=== PATIENT | female | born 1965 | race Caucasian/White ===

== ENCOUNTER 2017-04-28 22:57 | Inpatient (IN) ==
[2017-04-28] MEDS ORDERED: ATIVAN ONE (22:58)
[2017-04-28] MEDS ORDERED: ATIVAN IV ONE (23:00)
[2017-04-28] MEDS ORDERED: NS 1,000 ML ONE (23:07)
[2017-04-28] MEDS ORDERED: NS 1,000 ML IV ONE (23:07)
[2017-04-28 23:21] LABS: BE -2.9 mmoll (-3.0-3.0); BLOOD TYPE ARTERIAL; DRAW SITE R RADIAL; METHB 1.5 % (0.0-1.5); PCO2(98.6) 44 mmHg (35-45); PO2(98.6) 67 mmHg (60-100); SAMPLE BLOOD; SAO2 96.1 % (95.0-100.0); THB 14.5 g/dL (11.5-17.4); pH(98.6) 7.33 (7.35-7.45)
--- NOTE | 2017-04-28 23:41 | PROVIDER DOCUMENTATION ---
This chart was entered by Ellen Staley Scribe, acting as scribe for Devan Rocha MD. HPI-Psychological Disorder - General Chief Complaint: Altered Mental Status Time Seen by Provider: 04/28/17 22:59 Unable to obtain history due to:: altered Allergies/Adverse Reactions: Patient Allergies Allergy/AdvReac Type Severity Reaction Status Date / Time morphine Allergy Unknown HIVES Verified 04/28/17 23:04 Home Medications: Home Medication List Medication Instructions Recorded Confirmed Last Taken Type Ergocalciferol (Vitamin D2) 50,000 unit PO Q7D #14 capsule 11/04/16 Unknown Rx [Vitamin D] Gabapentin [Neurontin] 300 mg PO BID 30 Days 11/04/16 Unknown Rx Haloperidol [Haldol] 10 mg PO QHS 30 Days 11/04/16 Unknown Rx Levetiracetam [Keppra] 500 mg PO BID 30 Days 11/04/16 Unknown Rx Melatonin 5 mg PO QHS 30 Days 11/04/16 Unknown Rx Phenazopyridine [Pyridium] 100 mg PO TID 7 Days 11/04/16 Unknown Rx Trazodone [Desyrel] 50 mg PO QHS 30 Days 11/04/16 Unknown Rx - History of Present Illness-Psych Nature of Presenting Problem: 51 Y/O F presents to ED with Psych. Pt is delirious on arrival to ED having active hallucinations, screaming and distraught. Pt had to be wrestled into a wheelchair by ED nurses in [facility]. Onset/Duration: reports: this evening Timing: reports: still present Severity: reports: severe Situational problems related to:: reports: N/A Patient arrived by:: private car Review of Systems - Adult - REVIEW OF SYSTEMS - ADULT ROS:: unobtainable per condition (due to condition) Constitutional: denies: chills, fever Eyes: reports: no symptoms reported Ears, Nose, Mouth & Throat: reports: no symptoms reported Cardiovascular: reports: no symptoms reported Respiratory: reports: no symptoms reported Gastrointestinal: reports: no symptoms reported Genitourinary: reports: no symptoms reported Musculoskeletal: reports: no symptoms reported Integumentary: reports: no symptoms reported Neurological: reports: no symptoms reported Psychiatric: reports: no symptoms reported Endocrine: reports: no symptoms reported Hematologic/Lymphatic: reports: no symptoms reported Allergic/Immunologic: reports: no symptoms reported All Other Systems: Reviewed and Negative Past History - Adult - PAST MEDICAL HISTORY-ADULT Review of Records: reports: Old Records Reviewed, Nursing Assessment Review, Medications Reviewed, Social history reviewed & non-contributory. Major Childhood Illnesses: reports: history unknown Cardiovascular: reports: HTN Respiratory: reports: denies history Gastrointestinal: reports: denies history Obstetrical/Gynecological: reports: uterine/ovarian cancer Musculoskeletal: reports: chronic pain, intervertebral disc disease Neurological: reports: Seizures/Epilepsy Psychiatric: reports: denies history Endocrine/Immune: reports: denies history Other Conditions: reports: denies history - PRIOR SURGERIES/PROCEDURES Surgical/Procedure History: reports: hysterectomy, other, cholecystectomy, back/ neck - PRIOR HOSPITALIZATIONS Prior Hospitalizations: reports: none - IMMUNIZATION STATUS Childhood Immunizations: UTD Flu Vaccine: UTD - FAMILY HISTORY Family History: reviewed, not pertinent Physical Exam-Psych Focus - Physical Exam-Psych Appearance: alert, anxious, disheveled, lethargic, moderate distress Neurological: anxious Thoughts/Hallucinations: auditory hallucinations, visual hallucinations HENMT: moist mucous membranes, normal ENT inspection Neck: full range of motion, supple Respiratory: normal breath sounds, no pleuratic chest pain Cardiovascular: tachycardia Abdominal Exam: non tender, soft Lymphatic: no adenopathy Back Exam: no CVA tenderness, no vertebral tenderness Extremity: non-tender Integumentary: normal color, normal turgor Progress - PLAN OF CARE/RESULTS Progress/Plan/Lab Results: Vital Signs - 8 hr 04/28/17 22:57 04/28/17 23:16 04/29/17 00:22 Temperature 97.8 F 97.0 F L 97.0 F L Pulse Rate 136 H 100 H 76 Respiratory Rate 28 H 18 16 Blood Pressure 163/121 111/70 87/53 O2 Sat by Pulse Oximetry 98 95 96 Laboratory Results - last 24 hr 04/28/17 04/28/17 04/28/17 23:00 23:00 23:00 WBC RBC Hgb Hct MCV MCH MCHC RDW Std Deviation Plt Count MPV Immature Gran % (Auto) Neut % (Auto) Lymph % (Auto) [place] % (Auto) Eos % (Auto) Baso % (Auto) Immature Gran # (Auto) Neut # (Auto) Lymph # (Auto) [place] # (Auto) Eos # (Auto) Baso # (Auto) Segmented Neutrophils Band Neutrophils Lymphocytes Monocytes Eosinophils Basophils Metamyelocytes Myelocytes Promyelocytes Nucleated RBCs Atypical Lymphocytes Blast Cells Hypochromia Vacuolization Toxic Granulation Dohle Bodies Large Platelets Polychromasia Poikilocytosis Basophilic Stippling Anisocytosis Microcytosis Macrocytosis Spherocytes Sickle Cells Target Cells Ovalocytes Stomatocytes [place] Bodies Gilberto Cells Unidentified Cells Schistocytes PT INR APTT (Factor Assay) Specimen Type Sample Site pH pCO2 pO2 HCO3 Base Excess Oxyhemoglobin ABG O2 Sat (Calculated) ABG O2 Saturation ABG Carboxyhemoglobin ABG Methemoglobin Total Hemoglobin Lactate Liter Flow Sodium 136 Potassium 3.1 L Chloride 94 L Carbon Dioxide 23 L Anion Gap 19 BUN 13 Creatinine 1.1 H Estimated GFR/1.73 m2 53 BUN/Creatinine Ratio 12 Glucose 314 H Calculated Osmolality 284 Calcium 9.4 Total Bilirubin 0.80 AST 22 ALT 15 Alkaline Phosphatase 122 H Creatine Kinase 228 H Creatine Kinase Index 1.6 CK-MB (CK-2) 3.76 Troponin T < 0.010 Total Protein 7.9 Albumin 4.7 Globulin 3.0 Albumin/Globulin Ratio 1.0 Plasma Lactate Urine Source Urine Color Urine Clarity Urine pH Ur Specific [place] Urine Protein Urine Ketones Urine Blood Urine Nitrite Urine Bilirubin Urine Urobilinogen Urine Microscopic RBC Urine WBC Urine Microscopic WBC Ur Epithelial Cells Small Round Cells Urine Bacteria Urine Glucose Urine Opiates Screen Ur Oxycodone Screen Urine Methadone Screen Ur Barbituates Screen Ur Tricyclics Screen Ur Phencyclidine Scrn Ur Amphetamines Screen U Methamphetamines Scrn Urine MDMA Screen U Benzodiazepines Scrn Urine Cocaine Screen U Cannabinoids Screen Plasma/Serum Ethyl Alc 04/28/17 04/28/17 04/28/17 23:00 23:00 23:03 WBC 20.66 H RBC 4.62 Hgb 14.9 Hct 44.4 MCV 96.1 MCH 32.3 H MCHC 33.6 RDW Std Deviation 13.3 Plt Count 275 MPV 10.7 H Immature Gran % (Auto) 0.2 Neut % (Auto) 75.9 H Lymph % (Auto) 17.2 L [place] % (Auto) 6.3 Eos % (Auto) 0.3 Baso % (Auto) 0.1 Immature Gran # (Auto) 0.05 H Neut # (Auto) 15.66 H Lymph # (Auto) 3.55 H [place] # (Auto) 1.31 H Eos # (Auto) 0.06 Baso # (Auto) 0.03 Segmented Neutrophils Cancelled Band Neutrophils Cancelled Lymphocytes Cancelled Monocytes Cancelled Eosinophils Cancelled Basophils Cancelled Metamyelocytes Cancelled Myelocytes Cancelled Promyelocytes Cancelled Nucleated RBCs Cancelled Atypical Lymphocytes Cancelled Blast Cells Cancelled Hypochromia Cancelled Vacuolization Cancelled Toxic Granulation Cancelled Dohle Bodies Cancelled Large Platelets Cancelled Polychromasia Cancelled Poikilocytosis Cancelled Basophilic Stippling Cancelled Anisocytosis Cancelled Microcytosis Cancelled Macrocytosis Cancelled Spherocytes Cancelled Sickle Cells Cancelled Target Cells Cancelled Ovalocytes Cancelled Stomatocytes Cancelled [place] Bodies Cancelled [place] Cells Cancelled Unidentified Cells Cancelled Schistocytes Cancelled PT 13.7 INR 0.97 APTT (Factor Assay) 26.7 Specimen Type ARTERIAL Sample Site R RADIAL pH 7.33 L pCO2 44 pO2 67 HCO3 22.4 Base Excess -2.9 Oxyhemoglobin 88.5 L* ABG O2 Sat (Calculated) 18.0 ABG O2 Saturation 96.1 ABG Carboxyhemoglobin 6.40 H* ABG Methemoglobin 1.5 Total Hemoglobin 14.5 Lactate 2.40 H Liter Flow 2.0 Sodium Potassium Chloride Carbon Dioxide Anion Gap BUN Creatinine Estimated GFR/1.73 m2 BUN/Creatinine Ratio Glucose Calculated Osmolality Calcium Total Bilirubin AST ALT Alkaline Phosphatase Creatine Kinase Creatine Kinase Index CK-MB (CK-2) Troponin T Total Protein Albumin Globulin Albumin/Globulin Ratio Plasma Lactate Urine Source Urine Color Urine Clarity Urine pH Ur Specific [place] Urine Protein Urine Ketones Urine Blood Urine Nitrite Urine Bilirubin Urine Urobilinogen Urine Microscopic RBC Urine WBC Urine Microscopic WBC Ur Epithelial Cells Small Round Cells Urine Bacteria Urine Glucose Urine Opiates Screen Ur Oxycodone Screen Urine Methadone Screen Ur Barbituates Screen Ur Tricyclics Screen Ur Phencyclidine Scrn Ur Amphetamines Screen U Methamphetamines Scrn Urine MDMA Screen U Benzodiazepines Scrn Urine Cocaine Screen U Cannabinoids Screen Plasma/Serum Ethyl Alc 04/28/17 04/28/17 04/28/17 23:10 23:10 23:30 WBC RBC Hgb Hct MCV MCH MCHC RDW Std Deviation Plt Count MPV Immature Gran % (Auto) Neut % (Auto) Lymph % (Auto) [place] % (Auto) Eos % (Auto) Baso % (Auto) Immature Gran # (Auto) Neut # (Auto) Lymph # (Auto) [place] # (Auto) Eos # (Auto) Baso # (Auto) Segmented Neutrophils Band Neutrophils Lymphocytes Monocytes Eosinophils Basophils Metamyelocytes Myelocytes Promyelocytes Nucleated RBCs Atypical Lymphocytes Blast Cells Hypochromia Vacuolization Toxic Granulation Dohle Bodies Large Platelets Polychromasia Poikilocytosis Basophilic Stippling Anisocytosis Microcytosis Macrocytosis Spherocytes Sickle Cells Target Cells Ovalocytes Stomatocytes [place] Bodies Gilberto Cells Unidentified Cells Schistocytes PT INR APTT (Factor Assay) Specimen Type Sample Site pH pCO2 pO2 HCO3 Base Excess Oxyhemoglobin ABG O2 Sat (Calculated) ABG O2 Saturation ABG Carboxyhemoglobin ABG Methemoglobin Total Hemoglobin Lactate Liter Flow Sodium Potassium Chloride Carbon Dioxide Anion Gap BUN Creatinine Estimated GFR/1.73 m2 BUN/Creatinine Ratio Glucose Calculated Osmolality Calcium Total Bilirubin AST ALT Alkaline Phosphatase Creatine Kinase Creatine Kinase Index CK-MB (CK-2) Troponin T Total Protein Albumin Globulin Albumin/Globulin Ratio Plasma Lactate 2.2 Urine Source CATH Urine Color YELLOW Urine Clarity VERY CLOUDY A Urine pH 5.0 Ur Specific [place] 1.025 Urine Protein 2+(100 mg/dL) A Urine Ketones TRACE Urine Blood 2+ A Urine Nitrite NEGATIVE Urine Bilirubin NEGATIVE Urine Urobilinogen NORMAL Urine Microscopic RBC 10-20 A Urine WBC 2+ A Urine Microscopic WBC 10-20 A Ur Epithelial Cells <10 Small Round Cells [employer] Urine Bacteria 3+ Urine Glucose NEGATIVE Urine Opiates Screen PRESUMPTIVE POSITIVE A Ur Oxycodone Screen NONE DETECTED Urine Methadone Screen NONE DETECTED Ur Barbituates Screen NONE DETECTED Ur Tricyclics Screen NONE DETECTED Ur Phencyclidine Scrn NONE DETECTED Ur Amphetamines Screen NONE DETECTED U Methamphetamines Scrn NONE DETECTED Urine MDMA Screen NONE DETECTED U Benzodiazepines Scrn NONE DETECTED Urine Cocaine Screen PRESUMPTIVE POSITIVE A U Cannabinoids Screen PRESUMPTIVE POSITIVE A Plasma/Serum Ethyl Alc Orders Category Date Time Status Cardiac Monitoring DIRECTED Care 04/28/17 23:00 Active Finger Stick Blood Sugar (ED) DIRECTED Care 04/28/17 23:00 Active Key Cath Insertion ORDERED Care 04/29/17 00:00 Active Key Cath Insertion ORDERED Care 04/29/17 00:34 Active IV Insertion ORDERED Care 04/29/17 00:34 Active Intake and Output-Strict ORDERED Care 04/29/17 00:00 Active Intake and Output-Strict ORDERED Care 04/29/17 00:34 Active Misc. NRSG Communication Order DIRECTED Care 04/28/17 23:00 Active Notify MD/PA/DYNO TECHNICIAN for exam NOW Care 04/29/17 00:00 Active Notify MD/PA/DYNO TECHNICIAN for exam NOW Care 04/29/17 00:34 Active Oxygen Therapy- ED Nursing DIRECTED Care 04/28/17 23:00 Active Repeat Vital Signs .Blood Pressure Care 04/29/17 00:00 Active Repeat Vital Signs .Blood Pressure Care 04/29/17 00:34 Active Repeat Vital Signs .Heart Rate Care 04/29/17 00:00 Active Repeat Vital Signs .Heart Rate Care 04/29/17 00:34 Active Repeat Vital Signs .Oxygen Saturation Care 04/29/17 00:00 Active Repeat Vital Signs .Oxygen Saturation Care 04/29/17 00:34 Active Repeat Vital Signs .Respiratory Rate Care 04/29/17 00:00 Active Repeat Vital Signs .Respiratory Rate Care 04/29/17 00:34 Active Repeat Vital Signs .Temp Care 04/29/17 00:00 Active Repeat Vital Signs .Temp Care 04/29/17 00:34 Active Saline Loc NOW Care 04/28/17 23:00 Active CHEST-PORTABLE [RAD] Stat Exams 04/28/17 23:00 Taken ABG [RESP] Routine Lab 04/28/17 23:03 Results ALCOHOL BLOOD Stat Lab 04/28/17 23:00 Completed CBC WITH ELECTRONIC DIFF [HEME] Stat Lab 04/28/17 23:00 Completed CK PROFILE [SP CHEM] Stat Lab 04/28/17 23:00 Completed COMPREHENSIVE METABOLIC PANEL [CHEM] Stat Lab 04/28/17 23:00 Completed LACTATE, PLASMA [CHEM] Stat Lab 04/28/17 23:30 Com[address]IME WITH INR PL [COAG] Stat Lab 04/28/17 23:[address] [COAG] Stat Lab 04/28/17 23:00 Completed TROPONIN T Stat Lab 04/28/17 23:[address] W/POSS RFLX CULT [URINALYSIS] Stat Lab 04/28/17 23:10 Completed URINE CULTURE [RM] Routine Lab 04/29/17 00:09 [address] DRUG SCREEN [address] Stat Lab 04/28/17 23:10 Completed 0.9% Sodium Chloride Inj [Ns] 1,000 ml Med 04/28/17 23:07 Discontinued .ROUTE As Directed 0.9% Sodium Chloride Inj [Ns] 1,000 ml Med 04/28/17 23:07 Discontinued IV 999 mls/hr 0.9% Sodium Chloride Inj [Ns] 1,000 ml Med 04/29/17 00:00 Discontinued IV As Directed 0.9% Sodium Chloride Inj [Ns] 1,000 ml Med 04/29/17 00:34 Discontinued IV As Directed 0.9% Sodium Chloride Inj [Ns] 100 ml Med 04/29/17 00:00 Discontinued Vasopressin [Pitressin] 40 unit IV As Directed 0.9% Sodium Chloride Inj [Ns] 3,000 ml Med 04/29/17 00:41 Active IV 150 mls/hr 0.9% Sodium Chloride Inj [Ns] 500 ml Med 04/29/17 00:00 Discontinued IV 999 mls/hr 0.9% Sodium Chloride Inj [Ns] 500 ml Med 04/29/17 00:34 Discontinued IV 999 mls/hr Dextrose 5%-0.45% NaCl Inj [D5 1/2 Ns] 1,000 ml Med 04/29/17 00:43 Discontinued .ROUTE As Directed Dextrose 5%-0.45% NaCl Inj [D5 1/2 Ns] 250 ml Med 04/29/17 00:45 Active Norepinephrine [Levophed] 8 mg IV 2 mcg/min Levofloxacin 750 mg/D5w [Levaquin 750 mg/D5w] Med 04/29/17 01:03 Discontinued 750 mg in 150 ml .ROUTE As Directed Lorazepam [Ativan] Med 04/28/17 22:58 Discontinued 2 mg .ROUTE .STK-MED ONE Lorazepam [Ativan] Med 04/28/17 23:00 Discontinued 2 mg IV NOW ONE Norepinephrine [Levophed] Med 04/29/17 00:41 Discontinued 4 mg .ROUTE .STK-MED ONE Norepinephrine [Levophed] Med 04/29/17 00:56 Discontinued 4 mg .ROUTE .STK-MED ONE Piperacil/Tazobact 3.375 gm/Ns [Zosyn 3.375 gm/Ns] Med 04/29/17 00:00 Discontinued 3.375 gm in 50 ml IV NOW Vancomycin 1 gm/Ns Med 04/29/17 00:37 Discontinued 1 gm in 250 ml .ROUTE As Directed Vancomycin 1 gm/Ns Med 04/29/17 00:35 Active 1 gm in 250 ml IV NOW Pulse Oximetry Stat Oth 04/28/17 23:00 Active EKG [EKG] Stat Ther 04/28/17 23:[address] Yancey ,hospitalist at [facility] who is covering for Dr. Quiros. Dr. Yancey reports that there is no ICU beds at [facility]. patient will need to be admitted to ICU at [place]. Result Diagrams: 04/28/17 23:00 04/28/17 23:00 - EKG 1 Time of EKG reading by physician:: 23:13 EKG Read and Signed by:: Devan Rocha EKG Interpretation (*Must complete 3 of following elements*): Normal Rate: 97 Rhythm: NSR ST Wave: non-specific ST changes Comments: Abnormal ECG, Bilateral enlargement - XRAY 1 XRAY Study: Chest Impression: Normal XRAY Interpretation: NAD - CONSULTS/PCP/HOSPITALIST Notification #1 *Consult/PCP/Hospitalist*: Time Discussed: 00:43 Reason/Comments: Plan of care Consult Disposition: other (speak to the hospitalist at [facility] and xfer to the hospital) #2 Consult: Time Discussed: 00:59 Reason/Comments: Admit Consult Disposition: Admit (denied admittance stating no ICU bed availabe at [facility]) #3 Consult: Dr. Richardson, hospitalist Time Discussed: 01:05 Consult Disposition: Admit Departure - Departure Date of Disposition Decision: 04/29/17 Time of Disposition Decision: 01:07 DIAGNOSIS: Septic shock, Sepsis secondary to UTI, Hypotension Disposition: ADMITTED INPATIENT 09 Certified Medical Emergency: Emergent Condition: Critical Referrals and Follow-Ups: None,PCP [Primary Care Provider] - - Critical Care Note This patient required my direct & personal management of CC.: Yes Total Time (mins): 128 Critical Care Statement: This patient required my direct personal management to treat or rule out processes, the absence of which, could potentiallly result in sudden, clinically significant life or limb threatening deterioration. Comments: Patient is in septic shock with urinary tract infection requiring intensive care management including agressive IV fluid resuscitation, IV antibiotics, and IV pressors. patient also has altered mentation. Attestation - Physician/ JOHANNA Attestation The physician spent face to face time with patient:: Yes Advanced Practice Provider documentation review:: Supervising physician onsite and consulted in the evaluation and care of this patient. The physician did have a face to face encounter with the patient. This chart was documented by the indicated scribe, (Ellen Staley Scribe) and accurately reflects the services I performed and decisions made by me, Devan Rocha MD, as attested by the provider's signature.
--- NOTE | 2017-04-28 23:47 | EKG Report ---
Test Performed on : 04/28/2017 11:13:29 PM Test Reason : AMS Blood Pressure : / mmHG Vent. Rate : 097 BPM Atrial Rate : 097 BPM P-R Int : 148 ms QRS Dur : 092 ms QT Int : 358 ms P-R-T Axes : 070 019 088 degrees QTc Int : 454 ms Normal sinus rhythm. Biatrial enlargement Nonspecific ST and T wave abnormality Abnormal ECG When compared with ECG of 09-OCT-2012 15:37, Vent. rate has increased BY [address] now depressed in Inferior leads ST now depressed in Lateral leads Nonspecific T wave abnormality now evident in Lateral leads Unconfirmed Result
[2017-04-28 23:48] LABS: ALBUMIN 4.7 g/dL (3.5-5.0); CALCIUM 9.4 mg/dL (8.8-10.2); POTASSIUM 3.1 mmol/L (3.5-5.1); TOTAL BILIRUBIN 0.8 mg/dL (0.20-1.00); TOTAL PROTEIN 7.9 g/dL (6.3-8.3)
[2017-04-28 23:50] LABS: BILIRUBIN URINE NEGATIVE (NEGATIVE); BLOOD URINE 2+ (NEGATIVE); CLARITY VERY CLOUDY (CLEAR); COLOR YELLOW; GLUCOSE URINE NEGATIVE (NEGATIVE); NITRITE URINE NEGATIVE (NEGATIVE); PROTEIN URINE 2+(100 mg/dL) mg/dL (NEGATIVE); SP GRAVITY URINE 1.025; UROBILINOGEN URINE NORMAL
[2017-04-28 23:55] LABS: UR AMPHETAMINES QUAL NONE DETECTED (NONE DETECT); UR BARBITUATES QUAL NONE DETECTED (NONE DETECT); UR BENZODIAZEPIN QUAL NONE DETECTED (NONE DETECT); UR COCAINE QUAL PRESUMPTIVE POSITIVE (NONE DETECT)
[2017-04-28 23:56] LABS: UR CANNABINOIDS QUAL PRESUMPTIVE POSITIVE (NONE DETECT); UR MDMA QUAL NONE DETECTED (NONE DETECT); UR METHADONE QUAL NONE DETECTED (NONE DETECT); UR METHAMPHETAMINE QUAL NONE DETECTED (NONE DETECT); UR OPIATES QUAL PRESUMPTIVE POSITIVE (NONE DETECT); UR OXYCODONE QUAL NONE DETECTED (NONE DETECT); UR PCP QUAL NONE DETECTED (NONE DETECT); UR TCA QUAL NONE DETECTED (NONE DETECT)
[2017-04-28 23:58] LABS: BASO% 0.1 % (0.0-0.8); EOS# 0.06 X1000 (0.0-0.7); EOS% 0.3 % (0.0-10.0); HEMATOCRIT 44.4 % (37.0-47.0); HEMOGLOBIN 14.9 g/dL (12.0-16.0); IMM GRAN# 0.05 X1000 (0.0-0.04); IMM GRAN% 0.2 % (0.0-0.5); LYMPH# 3.55 X1000 (1.2-3.4); LYMPH% 17.2 % (20.5-51.1); MCH 32.3 PG (27-31); MCHC 33.6 g/dL (33-37); MCV 96.1 FL (81-99); MONO# 1.31 X1000 (0.11-0.59); MONO% 6.3 % (1.7-9.3); MPV 10.7 FL (7.4-10.4); NEUT% 75.9 % (42.2-75.2); PLT 275 X1000 (130-400); RBC 4.62 XMIL (4.2-5.4)
[2017-04-29] LABS: MANUAL DIFF NEEDED? NO
[2017-04-29] MEDS ORDERED: ZOSYN 3.375 GM/NS 3.375 GM/50 ML IVPB IV ONE
[2017-04-29] MEDS ORDERED: PITRESSIN 40 UNIT in NS 100 ML IV SCH ×2
[2017-04-29 00:07] LABS: URINE CULTURE PL NEEDED? YES; URINE EPITHELIAL CELLS <10 /HPF (<10); URINE SOURCE CATH
[2017-04-29 00:09] LABS: LEUKOCYTES URINE 2+ (NEGATIVE)
[2017-04-29 00:24] LABS: CK INDEX 1.6 (0.0-2.5); CK-MB 3.76 ng/mL (0.0-5.0)
[2017-04-29] MEDS ORDERED: NS 500 ML IV ONE ×2 (00:34)
[2017-04-29] MEDS ORDERED: NS 1,000 ML IV ONE ×2 (00:34)
[2017-04-29] MEDS ORDERED: VANCOMYCIN 1 GM/NS 1 GM/250 ML IVPB IV ONE (00:35)
[2017-04-29] MEDS ORDERED: VANCOMYCIN 1 GM/NS 1 GM/250 ML IVPB ONE (00:37)
[2017-04-29] MEDS ORDERED: NS 3,000 ML IV ONE (00:41)
[2017-04-29] MEDS ORDERED: LEVOPHED ONE ×4 (00:41→01:06)
[2017-04-29] MEDS ORDERED: D5 1/2 NS 1,000 ML ONE (00:43)
[2017-04-29] MEDS ORDERED: LEVOPHED 8 MG in D5 1/2 NS 250 ML IV SCH (00:45)
[2017-04-29 00:58] LABS: INR 0.97 (0.86-1.15); PROTIME 13.7 Seconds (12.1-15.5)
[2017-04-29 00:59] LABS: PTT PL 26.7 Seconds (22.6-43.9)
[2017-04-29] MEDS ORDERED: LEVAQUIN 750 MG/D5W 750 MG/150 ML IVPB ONE (01:03)
[2017-04-29] MEDS ORDERED: LEVAQUIN 750 MG/D5W 750 MG/150 ML IVPB IV ONE (01:09)
[2017-04-29] MEDS ORDERED: VANCOMYCIN IV PER PHARMACY MISC SCH (01:15)
[2017-04-29] MEDS ORDERED: VANCOMYCIN 500 MG/NS 500 MG/100 ML IVPB IV ONE (03:00)
[2017-04-29] MEDS ORDERED: ZOSYN 3.375 GM/NS 3.375 GM/50 ML IVPB IV SCH (06:00)
[2017-04-29 06:48] LABS: MODALITY CANNULA
[2017-04-29 06:49] LABS: ALLEN TEST YES
--- NOTE | 2017-04-29 08:04 | Diag Imaging Result Doc PS360 ---
EXAM: CHEST-PORTABLE HISTORY: AMS TECHNIQUE: Single view of the chest was performed portably. COMPARISON: 01/27/2017 FINDINGS: The cardiomediastinal silhouette is within normal limits. The pulmonary vasculature is not congested. No infiltrate, effusion, or pneumothorax is appreciated. There are postsurgical changes lower cervical spine. IMPRESSION: No acute cardiopulmonary abnormality is identified. Electronically signed by Francisca Leal 04/29/2017 8:02 AM
[2017-04-29] MEDS: NICODERM PATCH TD SCH (08:07)
[2017-04-29] MEDS: AUGMENTIN PO SCH ×2 (11:23→20:04)
[2017-04-29] MEDS ORDERED: LEVOPHED 8 MG in D5 1/2 NS 250 ML IV PRN (14:36)
[2017-04-29] MEDS ORDERED: TUMS EXTRA STRENGTH PO ONE (19:19)
--- NOTE | 2017-04-29 20:49 | HISTORY AND PHYSICAL ---
CHIEF COMPLAINT: Altered mental status. HISTORY OF PRESENT ILLNESS: Patient is a 51-year-old female who presented to the emergency department after being found by family and friends. She was hallucinating, distraught, was screaming. She was brought to the emergency department and needed to be restrained for a short period of time in the ER. After which time she became more somnolent and has been asleep most of the rest of the night. ALLERGIES: Morphine. MEDICATIONS: Vitamin D, Neurontin 300, Haldol p.r.n., Keppra 500 b.i.d., melatonin 5 at bedtime, Pyridium 100 t.i.d. and Desyrel. REVIEW OF SYSTEMS: As noted from the old chart. The patient currently is quite somnolent and does not arouse more than for a question or 2. She does deny attempting to hurt herself. However she also states that God told her someone would come along that would be able to help her so that she did not last night. PAST MEDICAL HISTORY: 1. Hypertension. 2. Chronic pain. 3. Chronic intervertebral disk disease. 4. Seizures. 5. Status post hysterectomy. 6. Status post cholecystectomy. FAMILY HISTORY: Noncontributory. SOCIAL HISTORY: Patient lives at home. She is , has children. PHYSICAL: Vital signs: Temperature 97, pulse 136 initially in the ER currently 76, blood pressure 163/121 initially in the ER currently 87/53, saturations 98% on room air. General: Patient is in no respiratory distress. She is lying flat in the bed. She will awaken and arouse to verbal stimuli but does not stay awake for long. HEENT: Normocephalic, atraumatic. JEFE. Neck: Supple. CV: Regular rate. Chest: Clear. Abdomen: Soft. Extremities: Moves all extremities. Neurologic: Difficult to assess although patient does not have any focal deficit. LABS: Reviewed. Potassium 3.1, glucose 314. WBC is 20.6. ASSESSMENT: 1. Hypokalemia. 2. Leukocytosis likely reactionary. 3. Acute drug intoxication. 4. Acute metabolic encephalopathy secondary to acute drug intoxication. 5. Hallucinations. 6. Known history of cocaine abuse. PLAN: Will admit patient to the hospital ICU, place her on telemetry, continue to follow. Watch for further withdrawal symptoms versus further respiratory distress from her current medication. Will continue to follow. Supportive care. Will place on antibiotics although expect that her WBCs is more reactionary to her acute intoxication. It is possible that she has got a urinary tract infection. Will treat and follow cultures. cc: Jeremiah Richardson MD
[2017-04-29] MEDS ORDERED: VANCOMYCIN 1 GM/NS 1 GM/250 ML IVPB IV SCH (21:00)
[2017-04-30 06:00] LABS: HEMATOCRIT 42.8 % (37.0-47.0); HEMOGLOBIN 14.5 g/dL (12.0-16.0); MCH 32.2 PG (27-31); MCHC 33.9 g/dL (33-37); MCV 94.9 FL (81-99); MPV 10.8 FL (7.4-10.4); RBC 4.51 XMIL (4.2-5.4)
[2017-04-30 06:15] LABS: AGAP 10; ALBUMIN 3.9 g/dL (3.5-5.0); ALKALINE PHOSPHATASE 112 U/L (32-104); BUN 6 mg/dL (8-22); CHLORIDE 102 mmol/L (98-107); COSMO 272; GOT 18 U/L (10-30); GPT 13 U/L (10-36); MAGNESIUM 1.9 mg/dL (1.5-2.7); POTASSIUM 3.4 mmol/L (3.5-5.1); SODIUM 137 mmol/L (136-145); TCO2 25 mmol/L (25-35); TOTAL PROTEIN 6.3 g/dL (6.3-8.3)
[2017-04-30] MEDS: AUGMENTIN PO SCH (08:32)
[2017-04-30] MEDS: NICODERM PATCH TD SCH (08:32)
--- NOTE | 2017-04-30 11:16 | PROGRESS NOTE ---
DATE: 04/30/2017 SUBJECTIVE: Today, Ms. Crews refers to be doing a lot better. Denies any complaints. According to her, she smoked some cigarettes, which she suspects had been mixed with other street substances, and that got her very agitated and altered. OBJECTIVE: Vital Signs: Blood pressure is 121/82, pulse of 83, respirations 18, temperature is 98.4 degrees. General: Ms. Crews is a 51-year-old female. She is in bed, not seemingly distressed. HEENT: Mucosa is pink and moist. Anicteric. Acyanotic. Neck: Supple. Patient has very poor dentition. Chest: Good air entry bilaterally. There is some end expiratory rhonchi. Cardiovascular: Regular rate and rhythm. There are no murmurs, no rubs, no gallops. Abdomen: Soft, nontender. Extremities: No pedal edema. Central Nervous System: Patient is awake, alert, oriented,, very conversational, and follows commands. LABORATORY DATA: 1. WBC is 10.40. This is a drop from 20.66. Hemoglobin is 14.5, platelet count is 229. Chemistry is reviewed. Sodium is 137, potassium is 3.4, chloride is 102, bicarb is 25. 2. A chest x-ray from the day of admission has been reviewed. There is no acute pulmonary abnormality. Definitely has changes consistent with COPD. CURRENT MEDICATIONS: 1. Augmentin. 2. Nicotine. ASSESSMENT: 1. Altered mental status on presentation, secondary to metabolic encephalopathy from acute drug intoxication. 2. Polysubstance, street drug abuse. 3. Active tobacco use. 4. Leukocytosis, likely reactive, improved. 5. History of chronic obstructive pulmonary disease, currently not in exacerbation. 6. Hyperglycemia on presentation, due to possible reactive. This has normalized. However, will do an A1c to check on the diabetes status. 7. Suspicion of urinary tract infection. PLAN: In general, Ms. Crews is doing a lot better. We are going to remove the Key catheter. We will still be pending the urine culture results. Will transfer Ms. Crews from the ICU to the regular floor. Hopefully, once we get to know what is growing in the urine culture, we will be able to streamline the antibiotics and discharge Ms. Crews hopefully tomorrow. cc: Erick Cisneros MD
[2017-04-30] MEDS ORDERED: KLONOPIN PO PRN (13:13)
[2017-04-30] MEDS ORDERED: VITAMIN D PO SCH (14:00)
[2017-04-30 15:59] VITALS: BP 143/89
[2017-04-30] MEDS ORDERED: KEPPRA PO SCH (21:00)
[2017-04-30] MEDS ORDERED: MELATONIN PO SCH (21:00)
[2017-04-30] MEDS ORDERED: NEURONTIN PO SCH (21:00)
--- NOTE | 2017-05-02 03:49 | DISCHARGE SUMMARY ---
ADMISSION DATE: 04/29/2017 DISCHARGE DATE: 04/30/2017 CONSULTATIONS DURING THIS ADMISSION: None. IMAGING STUDIES OF SIGNIFICANCE: A chest x-ray was done on presentation, was unremarkable. ADMISSION DIAGNOSES: 1. Hypokalemia. 2. Leukocytosis. 3. Drug intoxication. 4. Hallucinations. DIAGNOSES AT THE TIME LEAVING AGAINST MEDICAL ADVICE: 1. Altered mental status on presentation secondary to metabolic encephalopathy from acute drug intoxication. Mentation had improved. 2. Polysubstance street drug abuse. 3. Active tobacco abuse. 4. Leukocytosis, likely reactive, improved. 5. History of chronic obstructive pulmonary disease, not in exacerbation. 6. Hyperglycemia on presentation, likely reactive. MEDICATIONS: None were given because the patient signed AMA. HISTORY OF PRESENTING COMPLAINT: Ms. Crews is a 51-year-old, female who presented to the emergency department. She was found hallucinating, distraught, was screaming. Brought in by family and friends. Was found to be high on medications. UDS was positive for opioids, cocaine, and cannabinoids. The patient was subsequently admitted to the ICU for further medical care. HOSPITAL COURSE: The patient was admitted and closely monitored. Hydrated with fluids and was covered with antibiotics. Neurological checks as per protocol. Patient's mentation gradually improved. Yesterday, at the time of my encounter, patient was alert and oriented, and had expressed that she wanted to leave. However, we were still pending her urine culture which had come back negative. In any case, the patient decided to leave AMA because she would not wait the following day to be discharged. She says she has some other business to take care of and eventually left against medical advice. cc: Erick Cisneros MD
== END 2017-04-29 20:00 | disposition left against medical advice (07) ==
LOC: P.ED 22:57 → SUATTDRO 04-29 01:18 → P.ICU 04-29 01:18 → P.MEDSURG 04-30 12:57
PROVIDERS: ATTEND Internal Medicine

== ENCOUNTER 2017-05-14 12:35 | Inpatient (IN) ==
[2017-05-14 13:27] LABS: MANUAL DIFF NEEDED? NO
[2017-05-14 13:31] LABS: BASO% 0.2 % (0.0-0.8); EOS# 0.01 X1000 (0.0-0.7); EOS% 0.1 % (0.0-10.0); HEMOGLOBIN 16.9 g/dL (12.0-16.0); IMM GRAN# 0.05 X1000 (0.0-0.04); IMM GRAN% 0.3 % (0.0-0.5); LYMPH# 2.68 X1000 (1.2-3.4); LYMPH% 17.5 % (20.5-51.1); MCH 32.4 PG (27-31); MONO# 1.35 X1000 (0.11-0.59); MONO% 8.8 % (1.7-9.3); NEUT% 73.1 % (42.2-75.2); PLT 360 X1000 (130-400); RBC 5.22 XMIL (4.2-5.4)
[2017-05-14] MEDS ORDERED: STERILE WATER INJ. INJ ONE (13:35)
[2017-05-14] MEDS ORDERED: GEODON IM ONE (13:35)
[2017-05-14 13:46] LABS: ALBUMIN 5.1 g/dL (3.5-5.0); TOTAL BILIRUBIN 1.6 mg/dL (0.20-1.00); TOTAL PROTEIN 8.8 g/dL (6.3-8.3)
[2017-05-14 14:06] LABS: FREE T4 1.4 ng/dL (0.93-1.70)
[2017-05-14] MEDS ORDERED: NS 1,000 ML ONE (14:26)
[2017-05-14] MEDS ORDERED: NS 1,000 ML IV ONE ×3 (14:38→18:01)
--- NOTE | 2017-05-14 14:51 | EKG Report ---
Test Performed on : 05/14/2017 2:36:58 PM Test Reason : tachycardia Blood Pressure : / mmHG Vent. Rate : 099 BPM Atrial Rate : 099 BPM P-R Int : 134 ms QRS Dur : 082 ms QT Int : 380 ms P-R-T Axes : 075 038 081 degrees QTc Int : 487 ms Normal sinus rhythm. Biatrial enlargement Prolonged QT Abnormal ECG When compared with ECG of 28-APR-2017 23:13, ST no longer depressed in Inferior leads Nonspecific T wave abnormality no longer evident in Lateral leads Unconfirmed Result
[2017-05-14 14:54] LABS: UR AMPHETAMINES QUAL NONE DETECTED (NONE DETECT); UR BARBITUATES QUAL NONE DETECTED (NONE DETECT); UR BENZODIAZEPIN QUAL NONE DETECTED (NONE DETECT); UR CANNABINOIDS QUAL PRESUMPTIVE POSITIVE (NONE DETECT); UR COCAINE QUAL NONE DETECTED (NONE DETECT); UR MDMA QUAL NONE DETECTED (NONE DETECT); UR METHADONE QUAL NONE DETECTED (NONE DETECT); UR METHAMPHETAMINE QUAL NONE DETECTED (NONE DETECT); UR OPIATES QUAL PRESUMPTIVE POSITIVE (NONE DETECT); UR OXYCODONE QUAL NONE DETECTED (NONE DETECT); UR PCP QUAL NONE DETECTED (NONE DETECT); UR TCA QUAL NONE DETECTED (NONE DETECT)
[2017-05-14 15:02] LABS: BILIRUBIN URINE NEGATIVE (NEGATIVE); BLOOD URINE 2+ (NEGATIVE); CLARITY CLEAR (CLEAR); COLOR YELLOW; GLUCOSE URINE NEGATIVE (NEGATIVE); LEUKOCYTES URINE 2+ (NEGATIVE); NITRITE URINE NEGATIVE (NEGATIVE); PROTEIN URINE 1+(30 mg/dL) mg/dL (NEGATIVE); UROBILINOGEN URINE NORMAL
[2017-05-14 15:03] LABS: URINE WBC 20-40 /HPF (<10)
[2017-05-14 15:05] LABS: URINE CULTURE PL NEEDED? YES; URINE EPITHELIAL CELLS >10 /HPF (<10); URINE RBC <10 /HPF (<10)
[2017-05-14 15:06] LABS: URINE CAST GRANULAR PRESENT /LPF; URINE CRYSTAL NONE SEEN /HPF; URINE SOURCE CLEAN CATCH
--- NOTE | 2017-05-14 15:33 | Diag Imaging Result Doc PS360 ---
EXAM: CHEST-2 VIEWS INDICATION: elevated wbc TECHNIQUE: 2 views COMPARISON: 04/28/2017 FINDINGS: The lungs are grossly clear. There is no discrete pleural fluid collection or pneumothorax. The cardiomediastinal silhouette and central vasculature are grossly unremarkable. IMPRESSION: No evidence of acute pathology by plain radiograph. Electronically signed by Willie English 05/14/2017 3:31 PM
[2017-05-14] MEDS ORDERED: TORADOL IV ONE (17:20)
--- NOTE | 2017-05-14 17:47 | PROVIDER DOCUMENTATION ---
This chart was entered by Meli Higuera Scribe, acting as scribe for Robert Kwong MD. HPI-Psychological Disorder - General Chief Complaint: Psych Stated Complaint: PSYCH Time Seen by Provider: 05/14/17 17:06 Source: patient Allergies/Adverse Reactions: Patient Allergies Allergy/AdvReac Type Severity Reaction Status Date / Time morphine Allergy Unknown HIVES Verified 04/28/17 23:04 Home Medications: Home Medication List Medication Instructions Recorded Confirmed Last Taken Type Clonazepam [Clonazepam] 1 mg PO DAILY 05/13/17 05/13/17 Unknown History Hydrocodone/APAP 10 mg/325 mg 1 tab PO TID 05/13/17 05/13/17 Unknown History [[place]-10] Levetiracetam [Levetiracetam] 500 mg PO BID 05/13/17 05/13/17 Unknown History - History of Present Illness-Psych Nature of Presenting Problem: Pt is 51 year old female presents to the ED via EMS with AMS. EMS states Pt was speaking and not making sense. Pt denies SI or HI. Pt states she is here for fluids. Onset/Duration: reports: unsure Timing: reports: still present Severity: reports: mild Situational problems related to:: reports: N/A Psychiatric Complaints: reports: confused. denies: angry, agitated, altered mental status, anxiety, depressed, frustrated, hallucinating, hostile, homicidal thoughts, impaired concentration, ingestion, injury, insomnia, irritability, paranoid, , rapid pulse, restlessness, suicidal ideation, tremor Substance Use: reports: denies Previous psych related hospitalizations?: Yes Patient arrived by:: EMS called by spouse/family (son called EMS) Similar Symptoms Previously?: Yes Recently seen or treated by another doctor?: Yes (seen in ED yesterday ) Review of Systems - Adult - REVIEW OF SYSTEMS - ADULT Constitutional: denies: chills, fever Eyes: denies: decreased vision, blurred vision, double vision Ears, Nose, Mouth & Throat: denies: ear pain, nose pain, throat pain Cardiovascular: denies: chest pain, heart murmur, irregular heart rate Respiratory: denies: cough, shortness of breath, wheezing Gastrointestinal: denies: abdominal pain, diarrhea, nausea, vomiting Genitourinary: denies: dysuria, flank pain, hematuria Musculoskeletal: denies: bone pain, joint pain, neck pain Integumentary: denies: hives, itching, rash Neurological: reports: other (AMS). denies: dizziness/vertigo, headache/ migraines, numbness, seizure Psychiatric: denies: anxiety, depression, suicidal thoughts Endocrine: reports: no symptoms reported Hematologic/Lymphatic: reports: no symptoms reported Allergic/Immunologic: reports: no symptoms reported All Other Systems: Reviewed and Negative Past History - Adult - PAST MEDICAL HISTORY-ADULT Review of Records: reports: Nursing Assessment Review, Medications Reviewed, Social history reviewed & non-contributory. Major Childhood Illnesses: reports: history unknown Cardiovascular: reports: HTN Respiratory: reports: COPD Gastrointestinal: reports: denies history Obstetrical/Gynecological: reports: uterine/ovarian cancer Genitourinary: reports: denies history Musculoskeletal: reports: chronic pain, intervertebral disc disease Neurological: reports: Seizures/Epilepsy Psychiatric: reports: depression Endocrine/Immune: reports: denies history Other Conditions: reports: denies history - PRIOR SURGERIES/PROCEDURES Surgical/Procedure History: reports: hysterectomy, other, cholecystectomy, back/ neck - PRIOR HOSPITALIZATIONS Prior Hospitalizations: reports: none - IMMUNIZATION STATUS Childhood Immunizations: UTD Flu Vaccine: UTD - FAMILY HISTORY Family History: reviewed, not pertinent - SOCIAL HISTORY Smoking: cigarettes, greater than 1 pack/day Provider spent 3-5 mins advising pt. on dangers of tobacco.: Discussed manners to quit use, and f/u contacts for add'l counseling. Substance Use: other (meth) Living Situation: family Physical Exam-Psych Focus - Physical Exam-Psych Initial Vital Signs Reviewed: Yes Appearance: no apparent distress, alert, disheveled, slow to respond Neurological: alert, calm, disoriented x 3 Behavior/Eye Contact/Speech: good eye contact, decreased rate of speech Thoughts/Hallucinations: no apparent hallucination. negative: auditory hallucinations, tactile hallucinations, visual hallucinations HENMT: normocephalic/atraumatic, moist mucous membranes, normal ENT inspection. negative: angioedema, hearing deficit Neck: non-tender, normal inspection. negative: lymphadenopathy, tender lateral Respiratory: chest non-tender, lungs clear, normal breath sounds. negative: crackles, increased rate Cardiovascular: normal peripheral pulses, regular rate, rhythm. negative: tachycardia, diastolic murmur, systolic murmur Abdominal Exam: normal bowel sounds, non tender, soft. negative: distended, rigid, hernia Lymphatic: no adenopathy. negative: enlargement, streaking Back Exam: normal inspection, no CVA tenderness, no vertebral tenderness. negative: ecchymosis, swelling Extremity: normal range of motion, normal inspection. negative: deformity, erythema, swelling Integumentary: normal color, normal turgor, warm/dry. negative: ecchymosis, erythema, rash Progress - PLAN OF CARE/RESULTS Progress/Plan/Lab Results: Vital Signs - 8 hr 05/14/17 13:03 05/14/17 16:01 Temperature 97.1 F L Pulse Rate 120 H 83 Respiratory Rate 18 16 Blood Pressure 117/71 101/74 O2 Sat by Pulse Oximetry 100 96 Laboratory Results - last 24 hr 05/14/17 05/14/17 05/14/17 13:20 13:20 13:20 WBC RBC Hgb Hct MCV MCH MCHC RDW Std Deviation Plt Count MPV Immature Gran % (Auto) Neut % (Auto) Lymph % (Auto) [place] % (Auto) Eos % (Auto) Baso % (Auto) Immature Gran # (Auto) Neut # (Auto) Lymph # (Auto) Sharkey # (Auto) Eos # (Auto) Baso # (Auto) Sodium 131 L Potassium 4.0 Chloride 88 L Carbon Dioxide 20 L Anion Gap 23 BUN 46 H Creatinine 2.0 H Estimated GFR/1.73 m2 26 BUN/Creatinine Ratio 23 Glucose 119 H Calculated Osmolality 276 Calcium 10.0 Total Bilirubin 1.60 H AST 23 ALT 16 Alkaline Phosphatase 150 H Total Protein 8.8 H Albumin 5.1 H Globulin 4.0 Albumin/Globulin Ratio 1.0 Plasma Lactate Vitamin B12 424 TSH 0.42 Free T4 1.40 Urine Source Urine Color Urine Clarity Urine pH Ur Specific [place] Urine Protein Urine Ketones Urine Blood Urine Nitrite Urine Bilirubin Urine Urobilinogen Urine Microscopic RBC Urine WBC Urine Microscopic WBC Ur Epithelial Cells Urine Crystals Urine Bacteria Urine Casts Urine Yeast Urine Glucose Urine Opiates Screen Ur Oxycodone Screen Urine Methadone Screen Ur Barbituates Screen Ur Tricyclics Screen Ur Phencyclidine Scrn Ur Amphetamines Screen U Methamphetamines Scrn Urine MDMA Screen U Benzodiazepines Scrn Urine Cocaine Screen U Cannabinoids Screen Plasma/Serum Ethyl Alc 05/14/17 05/14/17 05/14/17 13:20 13:42 13:42 WBC 15.29 H RBC 5.22 Hgb 16.9 H Hct 47.0 MCV 90.0 MCH 32.4 H MCHC 36.0 RDW Std Deviation 12.9 Plt Count 360 MPV 10.0 Immature Gran % (Auto) 0.3 Neut % (Auto) 73.1 Lymph % (Auto) 17.5 L Sharkey % (Auto) 8.8 Eos % (Auto) 0.1 Baso % (Auto) 0.2 Immature Gran # (Auto) 0.05 H Neut # (Auto) 11.17 H Lymph # (Auto) 2.68 Sharkey # (Auto) 1.35 H Eos # (Auto) 0.01 Baso # (Auto) 0.03 Sodium Potassium Chloride Carbon Dioxide Anion Gap BUN Creatinine Estimated GFR/1.73 m2 BUN/Creatinine Ratio Glucose Calculated Osmolality Calcium Total Bilirubin AST ALT Alkaline Phosphatase Total Protein Albumin Globulin Albumin/Globulin Ratio Plasma Lactate Vitamin B12 TSH Free T4 Urine Source CLEAN CATCH Urine Color YELLOW Urine Clarity CLEAR Urine pH 5.0 Ur Specific [place] 1.020 Urine Protein 1+(30 mg/dL) A Urine Ketones 1+(Small) A Urine Blood 2+ A Urine Nitrite NEGATIVE Urine Bilirubin NEGATIVE Urine Urobilinogen NORMAL Urine Microscopic RBC <10 Urine WBC 2+ A Urine Microscopic WBC 20-40 A Ur Epithelial Cells >10 A Urine Crystals NONE SEEN Urine Bacteria 3+ Urine Casts GRANULAR PRESENT Urine Yeast PRESENT Urine Glucose NEGATIVE Urine Opiates Screen PRESUMPTIVE POSITIVE A Ur Oxycodone Screen NONE DETECTED Urine Methadone Screen NONE DETECTED Ur Barbituates Screen NONE DETECTED Ur Tricyclics Screen NONE DETECTED Ur Phencyclidine Scrn NONE DETECTED Ur Amphetamines Screen NONE DETECTED U Methamphetamines Scrn NONE DETECTED Urine MDMA Screen NONE DETECTED U Benzodiazepines Scrn NONE DETECTED Urine Cocaine Screen NONE DETECTED U Cannabinoids Screen PRESUMPTIVE POSITIVE A Plasma/Serum Ethyl Alc 05/14/17 14:55 WBC RBC Hgb Hct MCV MCH MCHC RDW Std Deviation Plt Count MPV Immature Gran % (Auto) Neut % (Auto) Lymph % (Auto) [place] % (Auto) Eos % (Auto) Baso % (Auto) Immature Gran # (Auto) Neut # (Auto) Lymph # (Auto) [place] # (Auto) Eos # (Auto) Baso # (Auto) Sodium Potassium Chloride Carbon Dioxide Anion Gap BUN Creatinine Estimated GFR/1.73 m2 BUN/Creatinine Ratio Glucose Calculated Osmolality Calcium Total Bilirubin AST ALT Alkaline Phosphatase Total Protein Albumin Globulin Albumin/Globulin Ratio Plasma Lactate 1.4 Vitamin B12 TSH Free T4 Urine Source Urine Color Urine Clarity Urine pH Ur Specific [place] Urine Protein Urine Ketones Urine Blood Urine Nitrite Urine Bilirubin Urine Urobilinogen Urine Microscopic RBC Urine WBC Urine Microscopic WBC Ur Epithelial Cells Urine Crystals Urine Bacteria Urine Casts Urine Yeast Urine Glucose Urine Opiates Screen Ur Oxycodone Screen Urine Methadone Screen Ur Barbituates Screen Ur Tricyclics Screen Ur Phencyclidine Scrn Ur Amphetamines Screen U Methamphetamines Scrn Urine MDMA Screen U Benzodiazepines Scrn Urine Cocaine Screen U Cannabinoids Screen Plasma/Serum Ethyl Alc Orders Category Date Time Status Admit - [facility] Routine AdmDCTranf 05/14/17 18:01 Ordered Call Admitting on Arrival AT ADMISSION Care 05/14/17 18:02 Ordered Neurological Check q2h Care 05/14/17 18:01 Ordered Vital Signs Order Q 4-HR ASSESS Care 05/14/17 18:01 Ordered CHEST-2 VIEWS [RAD] Stat Exams 05/14/17 14:24 Completed ALCOHOL BLOOD Stat Lab 05/14/17 13:20 Completed BLOOD CULTURE [BLDCUL] Stat Lab 05/14/17 14:44 Ordered CBC WITH ELECTRONIC DIFF [HEME] Stat Lab 05/14/17 13:20 Completed COMPREHENSIVE METABOLIC PANEL [CHEM] Stat Lab 05/14/17 13:20 Completed FREE T4 Stat Lab 05/14/17 13:20 Completed LACTATE, PLASMA [CHEM] Stat Lab 05/14/17 14:55 Completed TSH Stat Lab 05/14/17 13:[address] W/POSS RFLX CULT [URINALYSIS] Stat Lab 05/14/17 13:42 Completed URINE CULTURE [RM] Routine Lab 05/14/17 15:06 [address]UG SCREEN PL Stat Lab 05/14/17 13:42 Completed VITAMIN B12 Stat Lab 05/14/17 13:20 Completed 0.9% Sodium Chloride Inj [Ns] 1,000 ml Med 05/14/17 14:26 Discontinued .ROUTE As Directed 0.9% Sodium Chloride Inj [Ns] 1,000 ml Med 05/14/17 18:01 Ordered IV 150 mls/hr 0.9% Sodium Chloride Inj [Ns] 1,000 ml Med 05/14/17 14:38 Discontinued IV 999 mls/hr 0.9% Sodium Chloride Inj [Ns] 1,000 ml Med 05/14/17 17:56 Active IV 999 mls/hr Lorazepam [Ativan] Med 05/14/17 18:03 Ordered 2 mg PO Q6H PRN PRN Water, Sterile Inj [Sterile Water Inj] Med 05/14/17 13:35 Discontinued 1.2 ml INJ NOW ONE Ziprasidone [Geodon] Med 05/14/17 13:35 Discontinued 10 mg IM NOW ONE EKG [EKG] Stat Ther 05/14/17 14:24 Draft Transfer/Admit Order [TRANSFER] Routine Transfer 05/14/17 18:00 Ordered Result Diagrams: 05/14/17 13:20 05/14/17 13:20 - CONSULTS/PCP/HOSPITALIST Notification #1 *Consult/PCP/Hospitalist*: Dr. Richardson Time Discussed: 18:03 (Hospitalist accepted Pt ) Reason/Comments: Dr. Kwong consulted with Dr. Richardson about Pt Consult Disposition: Admit Departure - Departure Date of Disposition Decision: 05/14/17 Time of Disposition Decision: 18:03 DIAGNOSIS: Psychosis Disposition: ADMITTED INPATIENT 09 Certified Medical Emergency: Emergent Condition: Fair Referrals and Follow-Ups: Vivek Quiros MD [Primary Care Provider] - - Critical Care Note This patient required my direct & personal management of CC.: Yes Total Time (mins): 30 Critical Care Statement: This patient required my direct personal management to treat or rule out processes, the absence of which, could potentiallly result in sudden, clinically significant life or limb threatening deterioration. Attestation - Physician/ JOHANNA Attestation Patient care was provided by Advanced Practice Provider:: No The physician spent face to face time with patient:: Yes Advanced Practice Provider documentation review:: Supervising physician onsite and consulted in the evaluation and care of this patient. The physician did have a face to face encounter with the patient. This chart was documented by the indicated scribe, (Meli Higuera Scribe) and accurately reflects the services I performed and decisions made by me, Robert Kwong MD, as attested by the provider's signature.
--- NOTE | 2017-05-14 17:47 | ED EKG INTERP ---
This chart was entered by Meli Higuera Scribe, acting as scribe for Robert Kwong MD. EKG Interpretation - EKG Time of EKG reading by physician:: 14:36 EKG Read and Signed by:: Robert Kwong EKG Interpretation (*Must complete 3 of following elements*): Abnormal Rate: 99 Rhythm: normal sinus rhythm Comments: biatrial enlargement; prolonged QT Attestation - Physician/ JOHANNA Attestation Patient care was provided by Advanced Practice Provider:: No The physician spent face to face time with patient:: Yes Advanced Practice Provider documentation review:: Supervising physician onsite and consulted in the evaluation and care of this patient. The physician did have a face to face encounter with the patient. This chart was documented by the indicated scribe, (Meli Higuera Scribe) and accurately reflects the services I performed and decisions made by me, Robert Kwong MD, as attested by the provider's signature.
[2017-05-14] MEDS ORDERED: ATIVAN IV ONE (17:58)
[2017-05-14] MEDS ORDERED: ATIVAN PO PRN (18:03)
[2017-05-14] MEDS ORDERED: ATIVAN ONE (18:03)
[2017-05-15] MEDS: NORCO-10 PO SCH ×2 (00:01→08:32)
[2017-05-15] MEDS: KEPPRA PO SCH ×2 (00:02→08:33)
[2017-05-15] MEDS: NEURONTIN PO SCH ×2 (00:03→08:33)
[2017-05-15 08:17] LABS: MANUAL DIFF NEEDED? NO
[2017-05-15 08:37] LABS: BASO% 0.2 % (0.0-0.8); EOS# 0.09 X1000 (0.0-0.7); EOS% 0.9 % (0.0-10.0); HEMOGLOBIN 13.4 g/dL (12.0-16.0); IMM GRAN# 0.01 X1000 (0.0-0.04); IMM GRAN% 0.1 % (0.0-0.5); LYMPH% 36.5 % (20.5-51.1); MCH 32.5 PG (27-31); MCHC 35.3 g/dL (33-37); MCV 92.2 FL (81-99); MONO# 0.86 X1000 (0.11-0.59); MONO% 8.7 % (1.7-9.3); MPV 10.3 FL (7.4-10.4); NEUT% 53.6 % (42.2-75.2); PLT 267 X1000 (130-400); RBC 4.12 XMIL (4.2-5.4)
[2017-05-15 08:42] LABS: AGAP 10; ALBUMIN 3.9 g/dL (3.5-5.0); ALKALINE PHOSPHATASE 104 U/L (32-104); BUN 21 mg/dL (8-22); CALCIUM 8.6 mg/dL (8.8-10.2); CHLORIDE 100 mmol/L (98-107); COSMO 272; GOT 17 U/L (10-30); GPT 11 U/L (10-36); POTASSIUM 3.4 mmol/L (3.5-5.1); SODIUM 134 mmol/L (136-145); TCO2 24 mmol/L (25-35); TOTAL PROTEIN 6.6 g/dL (6.3-8.3)
[2017-05-15] MEDS ORDERED: KLONOPIN PO SCH ×2 (09:00)
[2017-05-15] MEDS ORDERED: NICODERM PATCH TD SCH (09:30)
--- NOTE | 2017-05-15 09:54 | HISTORY AND PHYSICAL ---
PRIMARY CARE PHYSICIAN: Dr. Quiros. CHIEF COMPLAINT: Altered mental status per EMS. HISTORY OF PRESENTING ILLNESS: This is a 51-year-old, female who presents to [facility] ER via EMS after her son called stating that she had increased confusion. This morning, on assessment, the patient states that she is been in the hospital for several days and started out in intensive care. I explained to the patient that she just came through the emergency room last night. She was argumentative for a couple of minutes but then realized we were correct, that she just came in last night. She said and that she came in because she was supposed to go to a today and was not feeling well. When she arrived to the emergency room, her white blood cell count was 15.29. Sodium was 131, BUN of 46 with a creatinine of 2. Her urine showed negative nitrites, 2+ white blood cells, greater than 10 epithelial cells, and 3+ bacteria. Urine drug screen was presumptive positive for opiates and cannabinoids. She was admitted for further evaluation and treatment. PAST MEDICAL HISTORY: Hypertension, chronic pain, chronic intravertebral disk disease, seizures, COPD, depression. PAST SURGICAL HISTORY: Hysterectomy, cholecystectomy, and a back and neck surgery. FAMILY HISTORY: Noncontributory. SOCIAL HISTORY: She currently lives with family. Smokes 1 pack of cigarettes a day. Denied any alcohol or illicit drug use. ALLERGIES: Morphine. HOME MEDICATIONS: She takes clonazepam 1 mg p.o. b.i.d., Neurontin 300 mg p.o. b.i.d., [place] 10 one p.o. t.i.d., and Keppra 500 mg p.o. b.i.d. LABORATORY DATA: Showed a white blood cell count of 15.29, hemoglobin 16.9, hematocrit 47, platelets 360,000. This a.m., her white blood cell count is down to 9.86. On arrival, her sodium was 131, potassium 4, chloride 88, CO2 20, BUN of 46, with a creatinine of 2, glucose 119. Total bilirubin of 1.6. Plasma lactate was 1.4. TSH of 0.42 with a free T4 of 1.4. Vitamin B12 of 424. This a.m., her sodium is up to 134, potassium at 3.4, BUN is 21, with a creatinine of 0.5. Urinalysis showed negative nitrites, 2+ white blood cells, greater than 10 epithelial cells, and 3+ bacteria. Urine drug screen was presumptive positive for opiates and cannabinoids. Her serum alcohol level showed none detected. Chest x-ray showed no evidence of acute pathology by plain radiograph. EKG showed normal sinus rhythm at 99. REVIEW OF SYSTEMS: She denies any fever, chills, blurred vision, dizziness, chest pain, coughing, shortness of breath. She denies any abdominal pain, constipation, diarrhea, or burning or hurting with urination. PHYSICAL EXAMINATION: VITAL SIGNS: On arrival showed a temperature of 97.1 degrees, a pulse of 120, respirations 18, blood pressure 117/71, saturating 100% on room air. Currently, her heart rate is at 75. GENERAL: This is a 51-year-old, female who is sitting up in the bed, answers questions although not always appropriately. Again, she felt like she had been in the hospital for several days, starting out in ICU when she actually arrived via EMS last night. HEENT: Normocephalic and atraumatic. Pupils are equal, round, reactive to light. The extraocular movements are intact. The oropharynx and nares are clear. NECK: Supple. LUNGS: Clear to auscultation bilaterally with equal lung expansion and chest wall movement. HEART: With regular rate and rhythm. No murmurs, rubs, or gallops. ABDOMEN: Soft, nontender, nondistended. Bowel sounds are present x4 quadrants. EXTREMITIES: No clubbing, cyanosis, or edema. NEUROLOGICAL: The cranial nerves 2-12 are grossly intact. ASSESSMENT: 1. Altered mental status. 2. Leukocytosis. 3. Hypokalemia. 4. Acute kidney injury. PLAN: She was admitted to the medical unit at [place]. Placed on a regular diet. Neurological checks q.2 hours. We are obtaining a urine culture. We continued her home medications. She received 2 L of normal saline boluses in the ER and normal saline at 150 mL an hour. We will also give her a nicotine patch 21 mg transdermally daily. It is likely after seen by attending that she will be discharged home as her leukocytosis has resolved, her acute kidney injury has resolved, and her hyponatremia has resolved at this time. Dictated by VICTOR M Altman for Jeremiah Richardson MD cc: VICTOR M Altman MD Amit V. Vora, MD
[2017-05-15 12:18] VITALS: BP 104/72
--- NOTE | 2017-05-15 21:46 | DISCHARGE SUMMARY ---
ADMISSION DATE: 05/14/2017 DISCHARGE DATE: 05/15/2017 PRIMARY CARE PHYSICIAN: Dr. Quiros. ADMISSION DIAGNOSES: 1. Altered mental status. 2. Leukocytosis. 3. Hypokalemia. 4. Acute kidney injury. DISCHARGE DIAGNOSES: 1. Altered mental status, improved. 2. Leukocytosis, resolved. 3. Hypokalemia, stable. 4. Acute kidney injury, resolved. SUMMARY OF FINDINGS: This is a 51-year-old, female who presents to the ER after her son called EMS stating that she had increased confusion. She states that she came in because she was supposed to go to a today and had not been feeling well. When she arrived to the emergency room her white blood cell count was 15.29 with a sodium of 131, BUN of 46 with a creatinine of 2. She had negative nitrites in her urine with 2+ white blood cells, greater than 10 epithelial cells and 3+ bacteria. Urine drug screen was presumptive positive for opiates and cannabinoids. She was admitted and hydrated. Her white cells have returned to normal. Her kidney function has returned to normal. Her sodium is 134 this morning. She appears to be more alert and oriented at this time and it was felt that she could safely be discharged home today. DISCHARGE MEDICATIONS: Include Klonopin 1 mg p.o. b.i.d., gabapentin 300 mg p.o. b.i.d., [place] 10 one p.o. t.i.d., #20 with no refills, Keppra 500 mg p.o. b.i.d. FOLLOWUP: She will need to follow with her primary care physician in 1-2 weeks. All discharge instructions have been reviewed with the patient and she verbalized understanding. Dictated by VICTOR M Altman for Jeremiah Richardson MD cc: VICTOR M Altman MD Amit V. Vora, MD
--- NOTE | 2017-05-16 06:27 | PROGRESS NOTE ---
DATE: 05/15/2017 ADDENDUM: SUBJECTIVE: Patient notes that she is feeling much better. She is no longer confused, she is asking to go home. Her labs have improved. Her creatinine is down from 2.0 down to 0.5. Certainly this could have been a lab error. Will discharge home. cc: Jeremiah Richardson MD
== END 2017-05-15 13:43 | disposition home or self-care (01) ==
LOC: P.ED 12:35 → P.MEDSURG 18:31
PROVIDERS: ATTEND Family Medicine

== ENCOUNTER 2019-07-23 09:59 | Inpatient (IN) ==
[2019-07-23] MEDS ORDERED: ZOFRAN IV PRN (10:57)
[2019-07-23] MEDS ORDERED: DILAUDID IV PRN (10:58)
--- NOTE | 2019-07-23 11:21 | EKG Report ---
Test Performed on : 07/23/2019 11:14:44 AM Test Reason : abd pain Blood Pressure : / mmHG Vent. Rate : 052 BPM Atrial Rate : 052 BPM P-R Int : 192 ms QRS Dur : 076 ms QT Int : 456 ms P-R-T Axes : 064 041 066 degrees QTc Int : 424 ms Sinus bradycardia. Otherwise normal ECG When compared with ECG of 04-JUN-2018 03:24, Vent. rate has decreased BY 25 BPM Confirmed by Arti COTTO, Sulaiman Mercedes ([id number]) on 07/23/2019 3:31:47 PM
--- NOTE | 2019-07-23 11:48 | Diag Imaging Result Doc PS360 ---
CHEST-1 VIEW - 07/23/2019 INDICATION: abd pain COMPARISON: 06/04/2018 FINDINGS: The lungs are normally expanded and clear. Heart size and mediastinal contours are normal. No pneumothorax or pleural effusion. IMPRESSION: Negative exam. Electronically signed by Joni Taylor 07/23/2019 11:46 AM
--- NOTE | 2019-07-23 11:56 | Diag Imaging Result Doc PS360 ---
CT ABDOMEN/PELVIS W/O CONTRAST - 07/23/2019 INDICATION: abd pain COMPARISON: 12/23/2016 FINDINGS: There is a small calcified granuloma in the right lower lobe. Otherwise the lung bases are clear. Heart size is normal with no pericardial effusion. No radiodense renal stones. No hydronephrosis or hydroureter. There are cholecystectomy clips. Otherwise all abdominal organs appear normal. No bowel obstruction or inflammation. Normal appendix. Uterus is absent. Urinary bladder and rectum are normal. There are stable lumbar spine fusion rods at L4-L5. These are intact. No acute or destructive bony lesions. IMPRESSION: No acute disease. This exam was performed using automated exposure control, adjustment of mA or kV according to patient size, and/or use of iterative reconstruction technique Electronically signed by Joni Taylor 07/23/2019 11:53 AM
[2019-07-23] MEDS: NORCO-10 PO PRN ×2 (12:40→21:12)
[2019-07-23 14:04] LABS: HEMATOCRIT 43.2 % (37.0-47.0); HEMOGLOBIN 14.3 g/dL (12.0-16.0); MCH 32.6 PG (27-31); MCHC 33.1 g/dL (33-37); MCV 98.4 FL (81-99); MPV 10.1 FL (7.4-10.4); RBC 4.39 XMIL (4.2-5.4); RDW 13.7 % (11.5-14.5); WBC 10.38 X1000 (4.8-10.8)
[2019-07-23 14:23] LABS: AGAP 10; ALB/GLOB RATIO 1.3; ALBUMIN 3.9 g/dL (3.5-5.0); ALKALINE PHOSPHATASE 113 U/L (32-104); AMYLASE 55 U/L (20-200); BUN 9 mg/dL (8-22); CHLORIDE 105 mmol/L (98-107); COSMO 281; CREATININE 0.7 mg/dL (0.5-0.9); ESTIMATED GFR > 60; GLUCOSE 143 mg/dL (70-104); GOT 16 U/L (10-30); GPT 10 U/L (10-36); POTASSIUM 3.6 mmol/L (3.5-5.1); SODIUM 140 mmol/L (136-145); TCO2 25 mmol/L (25-35); TOTAL BILIRUBIN 0.15 mg/dL (0.20-1.00); TOTAL PROTEIN 6.8 g/dL (6.3-8.3)
[2019-07-23] MEDS: D5 1/2 NS + KCL 10 MEQ 1,000 ML IV SCH (14:38)
[2019-07-23] MEDS ORDERED: NEURONTIN PO SCH ×2 (17:00→21:00)
[2019-07-23] MEDS: PROTONIX IV SCH (21:12)
[2019-07-23] MEDS: SODIUM CHLORIDE 0.9% INJ SCH (21:12)
[2019-07-23] MEDS: KEPPRA PO SCH (21:14)
[2019-07-23] MEDS: NEURONTIN PO SCH (21:14)
[2019-07-23] MEDS: KLONOPIN PO SCH (22:55)
[2019-07-24] MEDS: D5 1/2 NS + KCL 10 MEQ 1,000 ML IV SCH ×4 (01:43→22:58)
[2019-07-24] MEDS: NORCO-10 PO PRN ×3 (07:24→23:44)
--- NOTE | 2019-07-24 09:22 | PROGRESS NOTE ---
DATE: 07/24/2019 SUBJECTIVE: Ms Crews is feeling somewhat better today. She says she her diarrhea stopped and is not bothering her. Her abdomen is splitter tender in the left lower quadrant. I discussed with . Susanataiwo Leavitt, nurse practitioner for Dr. Yanez, that when she came in, she was complaining about diarrhea without blood in the stool. However, she does have history of recurrent vomiting and severe reflux symptoms. PLAN: She may need EGD. She may get a colonoscopy later on as an outpatient. We will continue the current management. cc: Vivek Quiros MD
--- NOTE | 2019-07-24 10:02 | HISTORY AND PHYSICAL ---
ADDENDUM: Ms. Crews definitely mentioned about diarrhea off and on for the last several weeks. She also had a history of hysterectomy and cervical spine surgery in the past. She smokes about a pack of cigarettes per day for many years. cc: Vivek Quiros MD
--- NOTE | 2019-07-24 10:05 | HISTORY AND PHYSICAL ---
HISTORY OF PRESENT ILLNESS: Ms. Crews, who is a 53-year-old white female, known case of degenerative disk disease in the lumbar spine as well as COPD, is admitted with severe abdominal pain, intermittent vomiting and diarrhea. She has not passed blood in the stool or in the vomitus. However, she has been vomiting off and on for several days. Other details of personal, past, and family history are unremarkable except for history of cholecystectomy and fusion surgery in the spine. She has been a heavy smoker. Does not drink. She has manic depressive psychosis and has lots of family problems. She smokes. She has been smoking heavily, however, is trying to cut down. ALLERGIES: She is allergic to morphine. REVIEW OF SYSTEMS: Other than abdominal pain, which is mild, and it is usually in the left lower quadrant, is noncontributory except for vomiting and diarrhea. The stool is semi-solid many times. PHYSICAL EXAMINATION: VITAL SIGNS: Reveal temperature normal, pulse 53 per minute, respiratory rate 18 per minute, blood pressure 107/63. HEENT: Head normocephalic. Pupils PERRLA. Fundus examination normal. NECK: Supple. JVP normal. ENT examination unremarkable. There is no evidence of lymphadenopathy, thyroid enlargement, pedal edema, calf tenderness, anemia, cyanosis or clubbing. Pedal pulses well felt. BREASTS: Exam normal. CHEST: Normal inspection. LUNGS: Clear to auscultation. HEART: PMI in the normal position. Heart sounds normal. No murmur, gallop or rub noted. ABDOMEN: Nondistended. It is diffusely tender, especially in the left lower quadrant. No guarding, rigidity, free fluid, masses, or organomegaly. Bowel sounds normal. RECTAL: Deferred. SURFACE GRINDER TENDER: Higher functions normal. Cranial nerves normal. Motor and sensory system examination unremarkable. Deep tendon reflexes are sluggish in the lower extremities. Plantars downgoing. MUSCULOSKELETAL: Skull and spine examination reveals painful movements of the lumbosacral spine. SLR positive. No cerebellar signs or signs of meningeal irritation of locomotor system. SKIN: Unremarkable. CLINICAL IMPRESSION: Severe abdominal pain associated with diarrhea and intermittent vomiting. PLAN: Start IV fluids. Get the CT scan of the chest and then decide about the GI consult. She may need a colonoscopy and/or EGD. cc: Vivek Quiros MD
[2019-07-24] MEDS: KEPPRA PO SCH ×2 (10:14→20:35)
[2019-07-24] MEDS: KLONOPIN PO SCH ×2 (10:14→20:34)
[2019-07-24] MEDS: NEURONTIN PO SCH ×3 (10:14→18:38)
[2019-07-24] MEDS: NICODERM PATCH TD SCH (10:17)
[2019-07-24] MEDS ORDERED: NORVASC PO SCH (11:15)
[2019-07-24] MEDS ORDERED: TOPROL XL PO SCH ×2 (11:15→12:04)
--- NOTE | 2019-07-24 13:04 | GASTROENTEROLOGY CONSULTATION ---
DATE: 07/24/2019 REASON FOR CONSULT: Abdominal pain, nausea and vomiting. HISTORY OF PRESENT ILLNESS: Ms. Crews is a 53-year-old female with history of degenerative disk disease, COPD, GERD, Hypertension, and seizures. She had been to her primary care provider on with complaints of abdominal pain and diarrhea. The patient came to the ER on Tuesday complaining of acid reflux and nausea sensation after every meals. She did mention that she has lost around 12 pounds, but does not remember exactly in how many months or days. She is a smoker, smokes 1 pack a day, and has occasional alcohol. The patient also has some depression and stated that she has lot of family issues. Today, she denied any nausea, vomiting or diarrhea. She said her bowel movement have been regular. ALLERGIES: She is allergic to morphine. PAST MEDICAL HISTORY: GERD, seizures, chronic back pain, depression. PAST SURGICAL HISTORY: Gallbladder surgery, and plates put in the back and the neck. HOME MEDICATIONS: Klonopin, Haldol, Dell Carbonate, Vitamin B12, Cymbalta, Keppra, Narco 10, Norvasc, Toprol, and Neurontin. SOCIAL HISTORY: She is single. She has 2 boys. Smokes 1 pack of cigarettes daily, drinks alcohol occasionally. Denies having illicit drugs. She is on disability. FAMILY HISTORY: Mom had diabetes. PHYSICAL EXAMINATION: Vital Signs: Temperature 98.3 degrees, pulse 50, respirations 16, blood pressure 104/63, oxygen saturation 96% on room air. Her weight is 157 pounds. BMI is 25.3 kg/m2. General: She is alert and oriented times, answering questions appropriately, and in no acute distress. HEENT: Pale conjunctivae. No icterus. PERRL. Neck: Supple. Lungs: Clear to auscultation in the anterior and posterior meyers. Cardiovascular: Regular rate and rhythm. Abdomen: Nondistended. generalized tenderness. Soft. Active bowel sounds heard in all 4 quadrants. No guarding. No rebound tenderness noted. Extremities: No clubbing, no cyanosis, or edema noted. Pedal pulses 2+ present bilaterally. Neurologic: Alert, and oriented x3, nonfocal, Cranial nerves II to XII grossly intact. LABS: WBC 10.38, RBC 4.39, Hemoglobin 14.3, Hematocrit 43.2, Platelet count 319,000, sodium 140, potassium 3.6, BUN 9, creatinine 0.7, calcium 8.0. CT of the abdomen/pelvis showed no acute disease. Chest x-ray showed negative examination. ASSESSMENT: 1. Abdominal pain. 2. Nausea/Vomiting 3. Gastroesophageal reflux disease. 4. Depression 5. Seizures. 6. Chronic back pain 7. Hypertension PLAN: We plan to do an outpatient EGD/Colonoscopy once she is discharged from the hospital. Per PCP she is receiving D5 half-normal saline with potassium 90 mL/h. Her potassium was 3.6, Keppra for her seizures. She is on Protonix IV 40 mg daily for GERD..Patient is on a full liquid diet, will advance as tolerated. Her H & H is 14.3 and 43.2, she is hemodynamically stable We will continue to monitor the patient and follow the plan of care per PCP. This plan was discussed with Dr. Mcnamara. Thank you for your consult. Please call for any further questions or concerns. Dictated by VICTOR M Jiang for Robert Mcnamara MD cc: Vivek Quiros MD Physician Attestation I have seen and examined the patient. I have discussed and reviewed the the note by Susana DOW and agree with findings and plan as documented. In brief, Ms. Coby Crews is a 53 year old woman who presents with worsening GERD symptoms, N/V, and abdominal pain. N/V, and abdominal pain resolved. Abdomen benign. Labs WNL and CT A/P without acute process. Patient reports 12 pound weight loss in a week. I have arranged for patient to have EGD/colonoscopy as outpatient in the next 1-2 weeks. Recommend PPI PO and oral zofran on discharge. Patient can be discharged from [facility]. Will sign off. Please call with questions. MTDD
[2019-07-24] MEDS: PROTONIX IV SCH (20:34)
[2019-07-24] MEDS: SODIUM CHLORIDE 0.9% INJ SCH (20:35)
[2019-07-25 07:19] VITALS: BP 112/56
[2019-07-25] MEDS: KEPPRA PO SCH (08:13)
[2019-07-25] MEDS: NORCO-10 PO PRN (08:13)
[2019-07-25] MEDS: KLONOPIN PO SCH (08:14)
[2019-07-25] MEDS: NICODERM PATCH TD SCH (08:14)
[2019-07-25] MEDS: NEURONTIN PO SCH (08:14)
--- NOTE | 2019-07-25 09:43 | PROGRESS NOTE ---
DATE: 07/25/2019 Ms. Crews is doing better, her blood pressure has come up, the vital signs are stable. Yesterday we had to hold her lisinopril as well as Norvasc, however, this morning the blood pressure was 112/56. Her GI procedures they decided to do as an outpatient. Hence, I am going to discharge her today. We will discharge her today and she is to be followed in the office in about 10 days. cc: Vivek Quiros MD
--- NOTE | 2019-07-25 10:12 | DISCHARGE SUMMARY ---
ADMISSION DATE: 07/23/2019 DISCHARGE DATE: 07/25/2019 HISTORY/HOSPITAL COURSE: Ms. Crews is a 53-year-old white female was admitted with significant diarrhea and abdominal pain, recurrent vomiting. She had heartburn also. Ms Crews also had significant weight loss at least about 10 pounds of weight loss. She was admitted. After being admitted the diarrhea stopped and she has diarrhea is not her problem and really actually she somewhat changed her history. She said diarrhea is not that big a problem. However, the upper abdominal pain and heartburn and vomiting were her problems. She had a CT scan of the abdomen done which was negative. He had cholecystectomy in the past. Chest x-ray was unremarkable. CT scan showed small calcified granuloma in the right lower lobe. CBC was unremarkable. A GI consult was made and Dr. Mcnamara decided to do the both EGD and colonoscopy as an outpatient as the patient was not very much symptomatic at this juncture that was almost 24 hours after admission. FINAL DIAGNOSES: 1. Severe abdominal pain, recurrent vomiting and diarrhea. 2. History of significant weight loss about 10 pounds in 1 month. DISPOSITION: She will be discharged today. I will give her a prescription for omeprazole. cc: Vivek Quiros MD
== END 2019-07-25 10:53 | disposition home health service (06) | DRG 392 ==
LOC: DIRADM 09:59 → 4N 10:32
PROVIDERS: ADMIT Internal Medicine; ATTEND Internal Medicine